=== PATIENT | female | born 1970 | race American Indian/Alaskan Native ===

== ENCOUNTER 2018-08-23 12:17 | Outpatient (CLI) | payer BC | END 2018-08-23 12:18 | disposition home or self-care (01) | LOC: LAB 12:17 | PROVIDERS: ATTEND Specialist | DX: G62.9 Polyneuropathy, unspecified (principal); G65.1 Sequelae of other inflammatory polyneuropathy; Z88.0 Allergy status to penicillin; Z91.013 Allergy to seafood | CPT/HCPCS: 36415; 82306; 82607; 82747; 83921; 86225; 86334; 86592 ==